=== PATIENT | male | born 1940 | race Caucasian/White ===

== ENCOUNTER 2017-03-26 07:39 | Inpatient (IN) | payer OTHER ==
[~2017-03-26] VITALS: Ht 177.8 cm; Wt 79.4 kg
[2017-03-26 07:40] VITALS: Ht 177.8 cm; Wt 79.4 kg
[2017-03-26 08:18] LABS: BASOPHIL % 0.5 % (0-2); PLATELET COUNT 201 x10^3mcL (130-400)
[2017-03-26 08:21] LABS: RED CELL DISTRIBUTION WIDTH 14.6 % (11.5-14.5)
[2017-03-26 08:44] LABS: CALCIUM 9.2 mg/dL (8.5-10.1); CARBON DIOXIDE 28.7 mmol/L (21-32); CHLORIDE SERUM 103 mmol/L (98-107); GLUCOSE SERUM 97 mg/dL (74-106); POTASSIUM SERUM 4.3 mmol/L (3.5-5.1); SODIUM SERUM 142 mmol/L (136-145)
[2017-03-26 08:53] LABS: T3 TOTAL 0.66 ng/mL
[2017-03-26 08:55] LABS: UA SPECIFIC GRAVITY 1.025 (1.005-1.035); microscopic required? YES; urine erythrocyte TRACE (NEGATIVE)
[2017-03-26 08:57] LABS: CK-MB 6.4 ng/mL (0-3.6)
[2017-03-26 09:19] LABS: ALKALINE PHOSPHATASE 69 U/L (46-116); ALT/SGPT 28 U/L (16-63); AST/SGOT 27 U/L (15-37); BILIRUBIN TOTAL 0.45 mg/dL (0.20-1.00); TOTAL PROTEIN, SERUM 7.5 g/dL (6.4-8.2)
[2017-03-26 09:23] LABS: ALBUMIN 3.3 g/dL (3.4-5.0)
[2017-03-26 09:33] LABS: ERYTHROCYTE SED RATE 85 mm/hr (0-20)
[2017-03-26 09:58] LABS: C REACTIVE PROTEIN 17.5 mg/dL (<=0.9)
[2017-03-26 10:30] LABS: FREE T4 1.12 ng/dL (0.76-1.46); FREE THYROXINE INDEX 2.9 ug/dL (1.4-4.5); T4(THYROXINE) 7.5 ug/dL (4.7-13.3)
[2017-03-26] MEDS ORDERED: LEVOTHYROXIN0.025 M2 (10:36)
[2017-03-26] MEDS ORDERED: NOR10T (10:36)
[2017-03-26] MEDS ORDERED: LORAZEPAM0.5 MG (10:36)
[2017-03-26] MEDS ORDERED: DULERA1 AR2 (10:36)
[2017-03-26] MEDS ORDERED: SPIRIVA18 MC1 (10:36)
[2017-03-26 11:06] LABS: MAGNESIUM 2.3 mg/dL (1.8-2.4); PHOSPHOROUS 3.1 mg/dL (2.5-4.9)
[2017-03-26 11:07] LABS: CHOLESTEROL/HDL RATIO 3.5
[2017-03-26] MEDS ORDERED: NORCO1 TA2 PO (15:34)
[2017-03-26] MEDS ORDERED: LIPITOR10 MG PO (15:35)
[2017-03-26] MEDS ORDERED: D3 20002000 IU PO (15:35)
[2017-03-26] MEDS ORDERED: MOBIC7.5 MG PO (15:35)
[2017-03-26] MEDS ORDERED: SINGULAIR10 MG PO (15:36)
[2017-03-26] MEDS ORDERED: ZESTRIL5 MG PO (15:36)
[2017-03-26] MEDS ORDERED: BACLOFEN10 MG PO (15:36)
[2017-03-26] MEDS ORDERED: SPIRIVA18 MC1 INH (15:36)
[2017-03-26] MEDS ORDERED: DULERA1 AR3 INH (15:37)
[2017-03-26] MEDS ORDERED: PROINH INH (15:37)
[2017-03-26] MEDS ORDERED: PROAIR RES117 MCG/Ac IH (15:37)
[2017-03-26 16:47] VITALS: BP 124/77
[2017-03-26 21:14] VITALS: BP 119/68
[2017-03-27 05:23] VITALS: BP 137/76
[2017-03-27] MEDS ORDERED: LEVOTHYROXIN0.075 M2 PO (08:58)
[2017-03-27 10:23] VITALS: BP 143/84
== END 2017-03-27 16:00 | disposition left against medical advice (07) | DRG 189 ==
LOC: ED 07:39 → DU 09:23
PROVIDERS: Specialist; Student in an Organized Health Care Education/Training Program
DX: J96.21 Acute and chronic respiratory failure with hypoxia (principal); N17.0 Acute kidney failure with tubular necrosis; J44.1 Chronic obstructive pulmonary disease with (acute) exacerbation; M19.011 Primary osteoarthritis, right shoulder; M47.892 Other spondylosis, cervical region; I10 Essential (primary) hypertension; G47.00 Insomnia, unspecified; E03.9 Hypothyroidism, unspecified; H35.30 Unspecified macular degeneration; Z99.81 Dependence on supplemental oxygen; Z87.891 Personal history of nicotine dependence; Z96.643 Presence of artificial hip joint, bilateral; Z79.891 Long term (current) use of opiate analgesic; Z68.30 Body mass index [BMI] 30.0-30.9, adult
CPT/HCPCS: 36600; 83880; 84439; 87804; 94150; J1956; J2543; J2930; J7030; J7613; J7620; J7644; Q0092